=== PATIENT | female | born 1930 | race Caucasian/White ===

== ENCOUNTER 2018-08-23 11:08 | Outpatient (CLI) | payer MEDICARE | END 2018-08-23 11:09 | disposition home or self-care (01) | LOC: BICMAMMO 11:08 | PROVIDERS: ATTEND Internal Medicine | DX: Z12.31 Encounter for screening mammogram for malignant neoplasm of breast (principal); Z85.3 Personal history of malignant neoplasm of breast; Z85.41 Personal history of malignant neoplasm of cervix uteri | CPT/HCPCS: 77063; 77067 ==